=== PATIENT | female | born 1995 | race Caucasian/White ===

== ENCOUNTER → 2023-09-15 14:35 | Outpatient (REF) | payer OTHER, SELFPAY ==
[2023-09-15 15:26] LABS: D-Dimer < 0.27 ug/mlFEU (0.00-0.50)
== END ==
LOC: REG 14:35
PROVIDERS: ATTENDING PHYSICIAN Nurse Practitioner Adult Health
DX: R06.02 Shortness of breath (principal)
CPT/HCPCS: 36415; 85379

== ENCOUNTER → 2024-07-30 16:03 | Outpatient (REF) | payer OTHER, SELFPAY | LOC: RAD 16:03 | PROVIDERS: ATTENDING PHYSICIAN Internal Medicine Gastroenterology; FAMILY PHYSICIAN Nurse Practitioner Adult Health | DX: R63.4 Abnormal weight loss (principal) | CPT/HCPCS: 74177; Q9967 ==

== ENCOUNTER 2024-08-02 06:35 | Day surgery (SDC) | payer OTHER, SELFPAY | END 2024-08-02 11:39 | disposition home or self-care (01) | LOC: GI 06:35 | PROVIDERS: ATTENDING PHYSICIAN Internal Medicine Gastroenterology | DX: R19.4 Change in bowel habit (principal); R63.4 Abnormal weight loss; K64.8 Other hemorrhoids; K29.70 Gastritis, unspecified, without bleeding | CPT/HCPCS: 45380; 43239; 88305; 88342 ==